=== PATIENT | female | born 1950 | race Caucasian/White ===

== ENCOUNTER 2017-04-27 08:00 | Day surgery (SDC) | payer BC, MEDICARE ==
[~2017-04-27 08:00] MED LIST: KETOROLAC TROMETHAMINE 0.45% 4 DROP/0.4 ML DROPERETTE OD PRN
[2017-04-27] MEDS: BESIFLOXACIN HCL 0.6% OPH SUSP 5 ML BOTTLE OD PRN ×4 (09:01→10:21)
[2017-04-27] MEDS: CYCLOPENTOLATE 0.2%/PHENYLEPHRINE 1% OPH SOLN 2 ML OD PRN ×3 (09:01→09:21)
[2017-04-27] MEDS: TROPICAMIDE 1% OPH SOLN 3 ML OD PRN ×3 (09:01→09:21)
[2017-04-27] MEDS: TETRACAINE HCL 0.5% OPH SOLN 0.6 ML DROPERETTE OD PRN ×4 (09:02→10:03)
[2017-04-27] MEDS ORDERED: MIDAZOLAM 2 MG/2 ML INJ ONE (09:56)
[2017-04-27] MEDS: EPINEPHRINE INJ/PF 1 MG/1 ML AMPULE ONE ×2 (10:11)
[2017-04-27] MEDS: LIDOCAINE 1% INJ-PF (10 MG/ML) 30 ML SDV ONE ×2 (10:11)
[2017-04-27] MEDS: CHONDR SU A NA/HYALUR INTRAOC KIT (SURGICARE) ONE ×2 (10:11)
[2017-04-27] MEDS: TOBRAMYCIN SULFATE/DEXAMETH OPH OINTMENT 3.5 GM ONE ×2 (10:21)
== END 2017-04-27 11:13 | disposition home or self-care (01) ==
LOC: SC 08:00
PROVIDERS: ATTEND Ophthalmology
PROC: 08RJ3JZ Replacement of Right Lens with Synthetic Substitute, Percutaneous Approach (ICD-10-PCS; principal; 2017-04-27 09:15)
DX: H25.11 Age-related nuclear cataract, right eye (principal); Z98.42 Cataract extraction status, left eye; F17.210 Nicotine dependence, cigarettes, uncomplicated
CPT/HCPCS: 66984; V2630; J2250; J3490 ×3; A9270; J0171; 142